=== PATIENT | male | born 1955 | race Caucasian/White ===

== ENCOUNTER 2017-01-28 10:31 | Emergency (ER) | payer OTHER ==
[~2017-01-28] VITALS: Ht 172.7 cm; Wt 99.0 kg
[~2017-01-28 10:31] MED LIST: ALLEGRA D OR; ALLEGRA-D 2424 HOUR PO; ALLOPURINOL100 MG PO; AMBIEN5 MG PO; AMLOD/BENAZP1 CA4 PO; CADUET PO; CRESTOR10 MG PO; LORTAB 1010 MG PO; TAMSULOSIN HCL0.4 MG PO
[2017-01-28] MEDS ORDERED: TRAMADOL HYDROC50 MG PO (10:56)
[2017-01-28] MEDS ORDERED: EC-NAPROSYN500 MG PO (10:56)
[2017-01-28 11:18] VITALS: BP 130/84
== END 2017-01-28 11:26 | disposition home or self-care (01) | DRG 605 ==
LOC: ED 10:31
DX: S90.31XA Contusion of right foot, initial encounter (principal); I10 Essential (primary) hypertension; M10.9 Gout, unspecified; W17.2XXA Fall into hole, initial encounter; Y92.9 Unspecified place or not applicable

== ENCOUNTER → 2018-12-26 | Outpatient (REF) | payer OTHER ==
[~2018-12-26] MED LIST changes: +EC-NAPROSYN500 MG PO; +TRAMADOL HYDROC50 MG PO
[2018-12-26 09:31] LABS: HEMATOCRIT 44.9 % (39.0-50.0); HEMOGLOBIN 14.9 g/dl (14.0-18.0); MEAN CELL VOLUME 86.2 fL CALC (80.0-100.0); MEAN CORPUSCULAR HGB 28.6 pG CALC (26.0-32.0); MEAN CORPUSCULAR HGB CONC 33.2 g/L CALC (32.0-36.0); RED BLOOD COUNT 5.21 mill/uL (4.70-6.10); RED CELL DISTRI WIDTH 13.1 % (11.5-15.5)
[2018-12-26 09:37] LABS: ANION GAP 13 (6-22 (CALC)); BUN 16 mg/dL (8-23); BUN/CREATININE RATIO 15 (12-20 (CALC)); CARBON DIOXIDE 27 mmol/l (22-30); CHLORIDE 104 mmol/l (95-108); CREATININE 1.1 mg/dL (0.7-1.3); GFR > 60 ML/MIN (>=60 (CALC)); GFR FOR AFR.AMER. > 60 ML/MIN (>=60 (CALC)); POTASSIUM 4.7 mmol/l (3.5-5.1); SODIUM 140 mmol/l (137-146)
== END | disposition home or self-care (01) | DRG 645 ==
LOC: LAB 07:41
PROVIDERS: ATTEND Nurse Practitioner Family
DX: E29.1 Testicular hypofunction (principal)